=== PATIENT | female | born 2005 | race Caucasian/White ===

== ENCOUNTER → 2023-03-24 | Outpatient (CLI) | payer OTHER ==
[2023-03-24 14:41] LABS: BASO # 0.1 10^3/uL (0.0-0.2); BASO % 1.1 % (0.0-1.0); EOS # 0.4 10^3/uL (0.0-0.5); EOS % 4.8 % (0.0-3.0); HEMATOCRIT 46.1 % (36.0-47.0); HEMOGLOBIN 15.2 g/dl (12.0-15.5); LYMPH # 2.4 10^3/uL (1.5-5.0); MEAN CORPUSCULAR HEMOGLOBIN 29.5 pg (27.0-33.0); MEAN CORPUSCULAR VOLUME 89.5 fl (80.0-96.0); MONO # 0.6 10^3/uL (0.0-0.8); MONO % 6.4 % (2.0-8.0); NEUTROPHILS # 5.3 10^3/uL (1.5-8.5); NEUTROPHILS % 60.5 % (36.0-66.0); PLATELET COUNT, AUTOMATED 340 10^3/uL (150-450); RED BLOOD COUNT 5.15 10^6/uL (4.00-5.40); WHITE BLOOD COUNT 8.8 10^3/uL (4.0-10.0)
[2023-03-24 15:08] LABS: FREE T4 1.22 NG/DL (0.83-1.43); THYROID STIMULATING HORMONE 1.759 uIU/ML (0.48-4.17)
[2023-03-24 15:09] LABS: BLOOD UREA NITROGEN < 5 MG/DL (9-23); CALCIUM LEVEL 9.1 MG/DL (8.5-10.1); CARBON DIOXIDE LEVEL 28 MMOL/L (20-31); CHLORIDE LEVEL 108 MMOL/L (98-107); CREATININE FOR GFR 0.73 MG/DL (0.55-1.30); GLUCOSE, FASTING 102 MG/DL (60-100); POTASSIUM SERUM 4.4 MMOL/L (3.5-5.1); SODIUM LEVEL 139 MMOL/L (136-145)
== END ==
LOC: M LAB 14:15
PROVIDERS: ATTEND Nurse Practitioner Adult Health
DX: F41.1 Generalized anxiety disorder (principal)

== ENCOUNTER → 2023-03-31 | Outpatient (CLI) | payer OTHER | LOC: M RAD 12:48 | PROVIDERS: ATTEND Nurse Practitioner Adult Health | DX: E04.9 Nontoxic goiter, unspecified (principal) ==

== ENCOUNTER → 2023-04-07 | Outpatient (REF) | payer OTHER | LOC: M LAB REF 16:53 | PROVIDERS: ATTEND Physician Assistant | DX: N39.0 Urinary tract infection, site not specified (principal) ==

== ENCOUNTER → 2023-06-01 | Outpatient (CLI) | payer OTHER ==
[2023-06-01 14:42] LABS: BASO # 0.1 10^3/uL (0.0-0.2); BASO % 0.8 % (0.0-1.0); EOS # 0.2 10^3/uL (0.0-0.5); EOS % 2.2 % (0.0-3.0); HEMATOCRIT 48.1 % (36.0-47.0); HEMOGLOBIN 16.2 g/dl (12.0-15.5); LYMPH # 2.2 10^3/uL (1.5-5.0); LYMPH % 22.4 % (24.0-44.0); MEAN CORPUSCULAR HEMOGLOBIN 29.1 pg (27.0-33.0); MEAN CORPUSCULAR HGB CONC 33.7 g/dl (32.0-36.5); MEAN CORPUSCULAR VOLUME 86.5 fl (80.0-96.0); MONO # 0.7 10^3/uL (0.0-0.8); MONO % 6.8 % (2.0-8.0); NEUTROPHILS # 6.7 10^3/uL (1.5-8.5); NEUTROPHILS % 67.5 % (36.0-66.0); PLATELET COUNT, AUTOMATED 346 10^3/uL (150-450); RED BLOOD COUNT 5.56 10^6/uL (4.00-5.40); WHITE BLOOD COUNT 9.9 10^3/uL (4.0-10.0)
== END ==
LOC: M LAB 14:10
PROVIDERS: ATTEND Nurse Practitioner Adult Health
DX: K62.89 Other specified diseases of anus and rectum (principal); F50.02 Anorexia nervosa, binge eating/purging type

== ENCOUNTER → 2023-11-20 | Outpatient (CLI) | payer OTHER ==
[2023-11-20 13:17] LABS: BASO # 0.1 10^3/uL (0.0-0.2); BASO % 0.6 % (0.0-1.0); EOS # 0.2 10^3/uL (0.0-0.5); EOS % 2.2 % (0.0-3.0); HEMATOCRIT 42.4 % (36.0-47.0); HEMOGLOBIN 14.3 g/dl (12.0-15.5); LYMPH # 1.8 10^3/uL (1.5-5.0); LYMPH % 19.2 % (24.0-44.0); MEAN CORPUSCULAR HEMOGLOBIN 29.7 pg (27.0-33.0); MEAN CORPUSCULAR HGB CONC 33.7 g/dl (32.0-36.5); MEAN CORPUSCULAR VOLUME 88.1 fl (80.0-96.0); MONO # 0.6 10^3/uL (0.0-0.8); MONO % 6.5 % (2.0-8.0); NEUTROPHILS # 6.7 10^3/uL (1.5-8.5); NEUTROPHILS % 71.1 % (36.0-66.0); PLATELET COUNT, AUTOMATED 313 10^3/uL (150-450); RED BLOOD COUNT 4.81 10^6/uL (4.00-5.40); WHITE BLOOD COUNT 9.4 10^3/uL (4.0-10.0)
[2023-11-20 13:28] LABS: ERYTHROCYTE SEDIMENTATION RATE 16 mm/hr (0-20)
[2023-11-20 13:46] LABS: ALKALINE PHOSPHATASE 84 U/L (46-116); ALT/SGPT 43 U/L (7.0-40); AST/SGOT 73 U/L (<34); BILIRUBIN,TOTAL 0.7 MG/DL (0.3-1.2); BLOOD UREA NITROGEN 7 MG/DL (9-23); CARBON DIOXIDE LEVEL 26 MMOL/L (20-31); CHLORIDE LEVEL 106 MMOL/L (98-107); CREATININE FOR GFR 0.69 MG/DL (0.55-1.30); GLUCOSE, FASTING 80 MG/DL (60-100); IMMUNOGLOBULIN A 221.9 MG/DL (40-350); IMMUNOGLOBULIN G 1311 MG/DL (650-1600); POTASSIUM SERUM 3.9 MMOL/L (3.5-5.1); SODIUM LEVEL 137 MMOL/L (136-145); TOTAL PROTEIN 7.4 G/DL (5.7-8.2)
[2023-11-20 14:58] LABS: IMMUNOGLOBULIN E 6.9 IU/ML (0-378)
[2023-11-24 13:22] LABS: IgG Subclass 4 81.2 mg/dL (4.0-86.0)
[2023-11-25 20:07] LABS: ANTI TETANUS ANTIBODY 0.69 IU/mL (>=0.10)
[2023-11-28 01:09] LABS: STREP PNEUMO TYPE 12FX <0.1 ug/mL (>1.3); STREP PNEUMO TYPE 14X 3.9 ug/mL (>1.3); STREP PNEUMO TYPE 19AX 1.7 ug/mL (>1.3); STREP PNEUMO TYPE 19FX 0.5 ug/mL (>1.3); STREP PNEUMO TYPE 1X <0.1 ug/mL (>1.3); STREP PNEUMO TYPE 23FX 1.7 ug/mL (>1.3); STREP PNEUMO TYPE 3X 0.3 ug/mL (>1.3); STREP PNEUMO TYPE 4X <0.1 ug/mL (>1.3); STREP PNEUMO TYPE 6BX 0.4 ug/mL (>1.3); STREP PNEUMO TYPE 7FX <0.1 ug/mL (>1.3); STREP PNEUMO TYPE 8X 2.1 ug/mL (>1.3); STREP PNEUMO TYPE 9NX <0.1 ug/mL (>1.3); STREP PNEUMO TYPE 9VX <0.1 ug/mL (>1.3); STREP PNEUMO TYPE X <0.1 ug/mL (>1.3)
== END ==
LOC: M LAB 12:07
PROVIDERS: ATTEND Allergy & Immunology Allergy
DX: D84.9 Immunodeficiency, unspecified (principal)

== ENCOUNTER → 2023-11-20 | Outpatient (CLI) | payer OTHER ==
[2023-11-23 10:42] LABS: HEPATITIS B SURF AB QUANT < 5 mIU/mL (> OR = 10)
[2023-11-24 13:27] LABS: RUBEOLA IgG ANTIBODY > 300.00 AU/mL (>16.49)
== END ==
LOC: M LAB 12:10
PROVIDERS: ATTEND Nurse Practitioner Adult Health
DX: Z11.59 Encounter for screening for other viral diseases (principal)